=== PATIENT | male | born 1950 | race Caucasian/White ===

== ENCOUNTER 2024-08-10 14:06 | Emergency (ER) | payer MEDICARE, BC ==
--- NOTE | 2024-08-10 14:27 | ED ---
Lower Extremity Injury HPI - General Stated Complaint: leg pain Time Seen by Provider: 08/10/24 14:21 Source: patient, RN notes reviewed - History of Present Illness Initial Comments: 74-year-old male presents to the emergency department with referral from urgent care for complaint of left thigh pain. States that over the past few weeks he has had worsening pain to the posterior thigh. He denies any known injuries or trauma to the leg. Patient was referred by urgent care to rule out potential blood clot. Patient denies pain of his calf, lower extremity edema, paresthesias, recent prolonged travel, recent surgeries, history of DVT or PE. Denies blood thinner use. Denies chest pain, shortness of breath, difficulty breathing, and heart palpitations. - Related Data Previous Rx's Medication Instructions Recorded Cephalexin [Keflex] 500 mg PO Q6HR 10 Days cap 05/14/14 Hydrocodone/Acetaminophen 1 each PO AC-BID #14 tablet 05/14/14 [Hydrocodon-Acetaminophen 5-325] Cephalexin [Keflex] 500 mg PO Q6HR #39 cap 08/10/24 Allergies Allergy/AdvReac Type Severity Reaction Status Date / Time No Known Allergies Allergy Verified 08/10/24 14:37 Review of Systems ROS Statement: Those systems with pertinent positive or pertinent negative responses have been documented in the HPI. ROS Other: All systems not noted in ROS Statement are negative. Past Medical History Past Medical History: No Reported History History of Any Multi-Drug Resistant Organisms: None Reported Past Surgical History: No Surgical Hx Reported Past Psychological History: No Psychological Hx Reported Past Alcohol Use History: None Reported Past Drug Use History: None Reported General Exam General appearance: alert, in no apparent distress Eye exam: Present: normal appearance, PERRL, EOMI. Absent: scleral icterus, conjunctival injection, periorbital swelling Neck exam: Present: normal inspection. Absent: tenderness, meningismus, lymphadenopathy Respiratory exam: Present: normal lung sounds bilaterally. Absent: respiratory distress, wheezes, rales, rhonchi, stridor Cardiovascular Exam: Present: regular rate, normal rhythm, normal heart sounds. Absent: systolic murmur, diastolic murmur, rubs, gallop, clicks GI/Abdominal exam: Present: soft, normal bowel sounds. Absent: distended, tenderness, guarding, rebound, rigid Right Upper Leg exam: Present: tenderness, swelling, erythema (medial inferior thigh midline palpable mass with surrounding erythema) Lower Leg exam: Present: normal inspection. Absent: swelling, deformity, erythema Foot/Toe exam: Present: normal inspection Neurovascular tendon exam: Present: no vascular compromise Gait: observed and normal Back exam: Present: normal inspection Psychiatric exam: Present: normal affect, normal mood Skin exam: Present: warm, dry, intact, normal color. Absent: rash Course Vital Signs 08/10/24 08/10/24 14:38 16:24 Temperature 98.7 F 98.1 F Pulse Rate 87 81 Respiratory 16 16 Rate Blood Pressure 132/79 128/72 O2 Sat by Pulse 96 97 Oximetry Medical Decision Making - Medical Decision Making Was pt. sent in by a medical professional or institution (, PA, MARKETING PROJECT SPECIALIST, urgent care, hospital, or penitentiary...) When possible be specific @ -Patient was advised by urgent care to report to the emergency room for further evaluation of pain to the lateral right thigh Did you speak to anyone other than the patient for history (EMS, parent, family, police, friend...)? What history was obtained from this source @ -No Did you review nursing and triage notes (agree or disagree)? Why? @ -I reviewed and agree with nursing and triage notes Were old charts reviewed (outside hosp., previous admission, EMS record, old EKG, old radiological studies, urgent care reports/EKG's, penitentiary records)? Report findings @ -No old charts were reviewed Differential Diagnosis (chest pain, altered mental status, abdominal pain women, abdominal pain men, vaginal bleeding, weakness, fever, dyspnea, syncope, headache, dizziness, GI bleed, back pain, seizure, CVA, palpatations, mental health, musculoskeletal)? @ -Differential Musculoskeletal Muscular strain, contusion, ligament sprain, fracture, arthritis, septic arthritis, bursitis, cellulitis, muscle spasm, nerve compression, DVT, arterial occlusion, herpes zoster, electrolyte abnormality, tumor.... This is not meant to be in all inclusive list EKG interpreted by me (3pts min.). @ none X-rays interpreted by me (1pt min.). @ -None done CT interpreted by me (1pt min.). @ -None done U/S interpreted by me (1pt. min.). @ -Duplex ultrasound of the right lower extremity reveals negative for DVT with a superficial thrombophlebitis of the right medial thigh What testing was considered but not performed or refused? (CT, X-rays, U/S, labs)? Why? @ -None What meds were considered but not given or refused? Why? @ -None Did you discuss the management of the patient with other professionals (professionals i.e. , PA, MARKETING PROJECT SPECIALIST, lab, RT, psych nurse, social media director, identity access management architect, teacher, community liaison officer, catalytic case operator)? Give summary @ -No Was smoking cessation discussed for >3mins.? @ -No Was critical care preformed (if so, how long)? @ -No Were there social determinants of health that impacted care today? How? (Ho melessness, low income, unemployed, alcoholism, drug addiction, transportation, low edu. Level, literacy, decrease access to med. care, long-term, rehab)? @ -No Was there de-escalation of care discussed even if they declined (Discuss DNR or withdrawal of care, Hospice)? DNR status @ -No What co-morbidities impacted this encounter? (DM, HTN, Smoking, COPD, CAD, Cancer, CVA, ARF, Chemo, Hep., AIDS, mental health diagnosis, sleep apnea, morbid obesity)? @ -None Was patient admitted / discharged? Hospital course, mention meds given and route, prescriptions, significant lab abnormalities, going to OR and other pertinent info. @ -Discharge. 74-year-old male with pain to the right thigh. On examination patient noted to have a area of erythema and edema with a palpable cord of the medial thigh. Patient's pulses are intact and is able to ambulate and bear weight with no deficits. Full range of motion of the knee hip and ankle. Ultrasound negative for DVT however reveals a superficial thrombophlebitis. Patient is provided with initial dose of antibiotics emergency department with concern for overlying cellulitis with superficial flap of phlebitis. Additionally, Clive wrap is placed over the leg and patient is instructed to take 600 mg of Tylenol every 8 hours over the next 5 to 7 days in addition to completing antibiotics and use of a compression and elevate the right leg. Recommend the patient follows up with primary care provider in 7 to 10 days for reevaluation. All questions answered at bedside and strict return parameters have been discussed with the patient he is verbalized understanding. Case discussed with Dr. Peter Undiagnosed new problem with uncertain prognosis? @ -No Drug Therapy requiring intensive monitoring for toxicity (Heparin, Nitro, Insulin, Cardizem)? @ -No Were any procedures done? @ -No Diagnosis/symptom? @ -superficial thrombophlebitis with overlying cellulitis Acute, or Chronic, or Acute on Chronic? @ -acute Uncomplicated (without systemic symptoms) or Complicated (systemic symptoms)? @ -uncomplicated Side effects of treatment? @ -No Exacerbation, Progression, or Severe Exacerbation? @ -No Poses a threat to life or bodily function? How? (Chest pain, [place], [place], pneumonia, PE, COPD, DKA, ARF, appy, cholecystitis, CVA, Diverticulitis, Homicidal, Suicidal, threat to staff... and all critical care pts) @ -No Disposition Clinical Impression: Superficial thrombophlebitis of leg, Cellulitis Disposition: HOME SELF-CARE Condition: Good Instructions (If sedation given, give patient instructions): Superficial Thrombophlebitis (ED) Additional Instructions: Please return to the Emergency Department if symptoms worsen or any other concerns. Complete full course of antibiotics as prescribed. Recommend that you continue to use Clive wrap over affected area, elevate, and use ibuprofen 600mg PO every 8 hours over the next 5 to 7 days for resolution. Recommend that you follow-up with your primary care provider in 7 to 10 days for further evaluation. Prescriptions: Cephalexin [Keflex] 500 mg PO Q6HR #39 cap Is patient prescribed a controlled substance at d/c from ED?: No Referrals: Nonstaff,Physician [REFERRING] - 1-2 days Time of Disposition: 16:06
[2024-08-10 14:41] VITALS: RESP 16
--- NOTE | 2024-08-10 15:40 | US ---
EXAMINATION TYPE: US venous doppler duplex LE RT DATE OF EXAM: 08/10/2024 3:18 PM COMPARISON: NONE CLINICAL INDICATION: Male, 74 years old with history of r/o DVT, pain; Area of pain and redness on pa tient's medial right thigh TECHNIQUE: The lower extremity deep venous system is examined utilizing real time linear array sonog sujit with graded compression, color doppler sonography, and spectral doppler. SIDE PERFORMED: Right FINDINGS: VESSELS IMAGED: Common Femoral Vein Deep Femoral Vein Greater Saphenous Vein * Femoral Vein Popliteal Vein Small Saphenous Vein * Proximal Calf Veins (* superficial vessels) Right Leg: Appears negative for DVT Scanned patient's right medial thigh at area of concern: thrombus seen within superficial vessel IMPRESSION: 1. No evidence for deep vein thrombosis. 2. Superficial thrombophlebitis of the right medial thigh. [facility], , 08/10/2024 3:38 PM
[2024-08-10] MEDS: CEPHALEXIN 500 MG CAP PO STA (16:21)
[2024-08-10 16:26] VITALS: BP 128/72; PULSE 81; TEMP 98.1
== END 2024-08-10 16:25 | disposition home or self-care (01) ==
LOC: EC 14:06
CPT/HCPCS: 99283